=== PATIENT | female | born 1970 | race American Indian/Alaskan Native ===

== ENCOUNTER 2016-12-02 00:31 | Observation (INO) | payer MEDICAID ==
[2016-12-02 00:45] VITALS: O2SAT 100
--- NOTE | 2016-12-02 01:41 | C.PDOC ---
History Of Present Illness 46 y/o F c PMHx anemia, fibroid uterus, bronchitis p/w anemia. Patient had routine lab work performed yesterday and was found to have Hb 6.6. She states that today, she began feeling lightheaded. She denies chest pain, dyspnea, syncope. Her PMD instructed her to come to ER for blood transfusion. She denies any current bleeding. Time Seen by Provider: 12/02/16 01:14 Chief Complaint (Nursing): Abnormal Labs Past Medical History Vital Signs: Last Vital Signs Temp 98.3 F 12/02/16 03:38 Pulse 79 12/02/16 03:38 Resp 18 12/02/16 03:38 BP 108/64 12/02/16 03:38 Pulse Ox 100 12/02/16 04:14 - Medical History PMH: Anemia, Asthma Family History: States: No Known Family Hx - Social History Hx Alcohol Use: Yes Hx Substance Use: No - Immunization History Hx Tetanus Toxoid Vaccination: No Hx Influenza Vaccination: No Hx Pneumococcal Vaccination: No Review Of Systems Except As Marked, All Systems Reviewed And Found Negative. Constitutional: Negative for: Fever Cardiovascular: Negative for: Chest Pain Physical Exam - Physical Exam Additional Physical Exam Comments: Constitutional: No acute distress. Head: Normocephalic. Atraumatic. Eyes: PERRL. ENT: Moist mucous membranes. Neck: Supple. Cardiovascular: Regular rate. Radial pulse 2+ bilaterally. Cap refill < 2 seconds. No murmur. Chest: No tenderness. Respiratory: Clear to auscultation bilaterally. GI: Soft. Nontender. Nondistended. Back: No CVA tenderness. Musculoskeletal: No tenderness or swelling of extremities. Skin: No rash. No pallor. Neurologic: Alert, no focal deficit. ED Course And Treatment - Laboratory Results Result Diagrams: 12/02/16 01:53 12/02/16 01:53 O2 Sat by Pulse Oximetry: 100 Medical Decision Making Medical Decision Making: Consented for blood transfusion. ED OBSERVATION Date of observation admission: 12/02/16 Time of observation admission: 02:00 - Observation admission statement Patient is being placed in observation because:: blood transfusion - Progress Note Progress Note: 0400 Transfusing. No distress. 12/02/16 04:[address] Mack for blood transfusion observation. Disposition Discussed With : Magaly Mack Doctor Will See Patient In The: Hospital - Disposition Disposition: HOSPITALIZED Disposition Time: 04:57 Condition: STABLE - Clinical Impression Clinical Impression: Anemia
[2016-12-02 01:58] LABS: BASO # 0.1 K/uL (0.0-0.2); BASO % 0.6 % (0.0-2.0); EOS % 0.5 % (0.0-4.0); HEMATOCRIT 24.3 % (34.0-47.0); LYMPH # 3.4 K/uL (1.0-4.3); LYMPH % 41.4 % (20.0-40.0); MEAN CELL VOLUME 54.1 fL (81.0-99.0); MEAN CORPUSCULAR HEMOGLOBIN 15.2 pg (27.0-31.0); MEAN CORPUSCULAR HGB CONC 28.2 g/dL (33.0-37.0); MEAN PLATELET VOLUME 8.5 fL (7.2-11.7); MONO # 0.7 K/uL (0.0-0.8); MONO % 8.9 % (0.0-10.0); NRBC % 0.1 % (0.0-2.0); RED CELL DISTRIBUTION WIDTH 21.2 % (11.5-14.5); WHITE BLOOD COUNT 8.2 K/uL (4.8-10.8)
[2016-12-02 02:05] LABS: CHLORIDE 102 mmol/L (98-107)
[2016-12-02 02:06] LABS: POTASSIUM 3.5 mmol/L (3.6-5.2); SODIUM 143 mmol/L (132-148)
[2016-12-02 02:08] LABS: BILIRUBIN,TOTAL 0.3 mg/dL (0.2-1.3); CARBON DIOXIDE 26 mmol/L (22-30); GFR AFRICAN-AMERICAN > 60
[2016-12-02 02:09] LABS: ALB/GLOB RATIO 1.2 (1.0-2.1); ALKALINE PHOSPHATASE 53 U/L (38-126); ALT/SGPT 22 U/L (9-52); AST/SGOT 29 U/L (14-36); BLOOD UREA NITROGEN 18 mg/dL (7-17); CALCIUM 9.4 mg/dl (8.6-10.4); GLUCOSE,RANDOM 97 mg/dL (65-105); TOTAL PROTEIN 8.7 g/dL (6.3-8.3)
[2016-12-02 11:19] LABS: BASO % 0.4 % (0.0-2.0); EOS # 0.1 K/uL (0.0-0.7); EOS % 0.9 % (0.0-4.0); LYMPH # 3.3 K/uL (1.0-4.3); LYMPH % 38.5 % (20.0-40.0); MEAN CELL VOLUME 56.5 fL (81.0-99.0); MEAN CORPUSCULAR HEMOGLOBIN 16.3 pg (27.0-31.0); MEAN CORPUSCULAR HGB CONC 28.9 g/dL (33.0-37.0); MEAN PLATELET VOLUME 8.5 fL (7.2-11.7); MONO # 0.8 K/uL (0.0-0.8); NRBC % 0.2 % (0.0-2.0); WHITE BLOOD COUNT 8.5 K/uL (4.8-10.8)
[2016-12-02 11:31] LABS: CHLORIDE 106 mmol/L (98-107); POTASSIUM 4.5 mmol/L (3.6-5.2); SODIUM 140 mmol/L (132-148)
[2016-12-02 11:34] LABS: CARBON DIOXIDE 20 mmol/L (22-30); GFR AFRICAN-AMERICAN > 60
[2016-12-02 11:35] LABS: BLOOD UREA NITROGEN 17 mg/dL (7-17); CALCIUM 8.5 mg/dl (8.6-10.4); GLUCOSE,RANDOM 90 mg/dL (65-105)
[2016-12-02 11:52] LABS: INR 1.1
--- NOTE | 2016-12-02 12:00 | CP.PCM.HP ---
History of Present Illness - History of Present Illness History of Present Illness: pt came and admited feeling very weeke has severe aneamia reqired transfusion had heavy periods fibroid Present on Admission - Present on Admission Any Indicators Present on Admission: No Review of Systems - Review of Systems Systems not reviewed;Unavailable: Acuity of Condition - Constitutional Constitutional: Fatigue - EENT Eyes: As Per HPI Ears: As Per HPI Nose/Mouth/Throat: As Per HPI - Breasts Breasts: As Per HPI - Cardiovascular Cardiovascular: As Per HPI - Respiratory Respiratory: As Per HPI - Gastrointestinal Gastrointestinal: As Per HPI - Genitourinary Genitourinary: As Per HPI - Reproductive: Female Reproductive:Female: As Per HPI - Menstruation Menstruation: Heavy Menses - Musculoskeletal Musculoskeletal: As Per HPI - Integumentary Integumentary: As Per HPI - Neurological Neurological: As Per HPI - Psychiatric Psychiatric: As Per HPI - Endocrine Endocrine: As Per HPI - Hematologic/Lymphatic Hematologic: As Per HPI Past Patient History - Past Medical History & Family History Past Medical History?: Yes - Past Social History Smoking Status: Former Smoker - PULMONARY Hx Respiratory Disorders: Yes Hx Asthma: Yes - NEUROLOGICAL Hx Neurological Disorder: No - HEENT Hx HEENT Problems: No - RENAL Hx Chronic Kidney Disease: No - ENDOCRINE/METABOLIC Hx Endocrine Disorders: No - HEMATOLOGICAL/ONCOLOGICAL Hx Blood Disorders: Yes Hx Anemia: Yes - INTEGUMENTARY Hx Dermatological Problems: No - MUSCULOSKELETAL/RHEUMATOLOGICAL Hx Musculoskeletal Disorders: No Hx Falls: No - GASTROINTESTINAL Hx Gastrointestinal Disorders: No - GENITOURINARY/GYNECOLOGICAL Hx Genitourinary Disorders: No Other/Comment: uterine fibroids - PSYCHIATRIC Hx Psychophysiologic Disorder: No Hx Substance Use: No - SURGICAL HISTORY Hx Surgeries: Yes Other/Comment: multiple abortions - ANESTHESIA Hx Anesthesia: Yes Hx Anesthesia Reactions: No Hx Malignant Hyperthermia: No Has any member of the family had a problem w/ anesthesia?: No Meds Allergies/Adverse Reactions: Allergies Allergy/AdvReac Type Severity Reaction Status Date / Time shellfish derived Allergy Verified 12/02/16 00:45 Physical Exam - Constitutional Appears: Non-toxic - Head Exam Head Exam: NORMAL INSPECTION - Eye Exam Eye Exam: Periorbital tenderness Pupil Exam: NORMAL ACCOMODATION - ENT Exam ENT Exam: Mucous Membranes Moist - Neck Exam Neck exam: Positive for: Full Rom - Respiratory Exam Respiratory Exam: NORMAL BREATHING PATTERN - Cardiovascular Exam Cardiovascular Exam: REGULAR RHYTHM - GI/Abdominal Exam GI & Abdominal Exam: Normal Bowel Sounds - Rectal Exam Rectal Exam: NORMAL INSPECTION - Exam Exam: NORMAL INSPECTION External exam: NORMAL EXTERNAL EXAM - Extremities Exam Extremities exam: Positive for: normal inspection - Back Exam Back exam: NORMAL INSPECTION - Neurological Exam Neurological exam: Normal Gait, Oriented x3 - Psychiatric Exam Psychiatric exam: Normal Affect - Skin Skin Exam: Normal Color Results - Vital Signs Recent Vital Signs: Last Vital Signs Temp 98.7 F 12/02/16 08:23 Pulse 67 12/02/16 08:23 Resp 20 12/02/16 08:23 BP 142/79 12/02/16 08:23 Pulse Ox 100 12/02/16 08:23 - Labs Result Diagrams: 12/02/16 11:08 12/02/16 11:08 Labs: Laboratory Results - last 24 hr 12/02/16 11:08 WBC 8.5 RBC 4.60 Hgb 7.5 L Hct 26.0 L MCV 56.5 L D MCH 16.3 L MCHC 28.9 L RDW 22.0 H Plt Count 390 MPV 8.5 Neut % (Auto) 51.2 Lymph % (Auto) 38.5 Travis % (Auto) 9.0 Eos % (Auto) 0.9 Baso % (Auto) 0.4 Neut # 4.4 Lymph # 3.3 Travis # 0.8 Eos # 0.1 Baso # 0.0 PT 12.7 H INR 1.1 Sodium 140 Potassium 4.5 Chloride 106 Carbon Dioxide 20 L Anion Gap 19 BUN 17 Creatinine 0.7 Est GFR ( Amer) > 60 Est GFR (Non-Af Amer) > 60 Random Glucose 90 Calcium 8.5 L Assessment & Plan - Assessment and Plan (Free Text) Assessment: severe aneamia required transfusion hypocalceamia Plan: transfusion - Date & Time Date: 12/02/16 Time: 12:04
--- NOTE | 2016-12-02 15:30 | CP.PCM.PN ---
Subjective - Date & Time of Evaluation Date of Evaluation: 12/02/16 Time of Evaluation: 15:30 - Subjective Subjective: Alert and orientedx3, NAD. Objective - Vital Signs/Intake and Output Vital Signs (last 24 hours): Temp Pulse Resp BP Pulse Ox 97.7 F 58 L 16 113/67 100 12/02/16 13:34 12/02/16 13:34 12/02/16 13:34 12/02/16 13:34 12/02/16 08:23 Intake and Output: 12/02/16 12/02/16 06:59 18:59 Intake Total 0 Balance 0 - Medications Medications: Current Medications Ferrous Sulfate (Feosol) 325 mg PO TID MYRNA Last Admin: 12/02/16 14:16 Dose: 325 mg - Labs Labs: 12/02/16 11:08 12/02/16 11:08 PT 12.7 SECONDS (9.7-12.2) H 12/02/16 11:08 INR 1.1 12/02/16 11:08 Assessment and Plan - Assessment and Plan (Free Text) Assessment: Patient admitted with severe anemia, seen and examined. Alert and orientedx3, no active bleeding. To receive the second unit of PRBC then can be discharged today as per DR Mack. Advised to follow up in the office on sunday. No acute distress.
[2016-12-02 16:20] VITALS: PULSE 59; RESP 18
[2016-12-02 16:21] VITALS: BP 116/70; TEMP 97.7
--- NOTE | 2016-12-04 13:17 | PQF ANEMIA ---
This form is a permanent part of the medical record Clarification of your documentation is requested to better reflect the severity of illness and intensity of treatment of your patient. Indicators present [X] Anemia [] Drop in H&H from []___ to []___ [] Hypotension [] GI Bleed [X] Transfusion(s) [] Acute bleed other sites [] Tachycardia [] Surgical Procedure Blood Loss (expected not a complication) Other:[X]____documentation of heavy periods, transfusion given._ Location in the medical record that reflects the above clinical findings: [] Treatment Provided: [x] Transfusion PHYSICIAN'S RESPONSE Based on your medical judgment of the clinical indicators outlined above, are you treating this patient for a known or suspected: [] Acute blood loss anemia [] Chronic blood loss anemia [x] Acute on Chronic blood loss anemia [] Anemia due to malignancy [] Anemia due to chemotherapy or radiation therapy [] Anemia of Chronic Disease, please specify: [] [] Other, please indicate type of anemia []____ [] If Unable to Determine, please check the box, sign and date. Present On Admission (POA) Indicator: [x] Present at the time of admission [] Not present at the time of admission [] Clinically Undetermined In responding to this query, please exercise your independent professional judgment. The fact that a question is asked does not imply that any particular answer is desired or expected. Thank you for your clarification on this documentation. If you have any questions please call:[ ] * Thank you, [ Ciara Palafox, JACQUELINE, CCS, CCS-P] roller gold leaf MARLINE
== END 2016-12-02 19:20 | disposition home or self-care (01) ==
LOC: C.ER 00:31 → C.9OBSV 02:00 → MERGE 02:00 → C.9E 06:09 → C.3T 06:15 → UNDODISOB 17:15
PROVIDERS: ADMIT Internal Medicine; ATTEND Internal Medicine
DX: D62 Acute posthemorrhagic anemia (principal); Z87.891 Personal history of nicotine dependence; J45.909 Unspecified asthma, uncomplicated; E83.51 Hypocalcemia; N92.0 Excessive and frequent menstruation with regular cycle
CPT/HCPCS: 36430; 80048; 80053; 85025; 85610; 86850; 86900; 86920; 99284; G0378; P9051

== ENCOUNTER 2017-09-06 19:47 | Emergency (ER) | payer MEDICAID ==
--- NOTE | 2017-09-06 21:15 | C.PDOC ---
History Of Present Illness The patient reports 4 day history of cough which is productive of yellow/green sputum. The patient states that the symptoms are associated with fever and bodyaches. Denies nausea, vomiting, diarrhea, travel, chest pain, SOB. Time Seen by Provider: 09/06/17 20:14 Chief Complaint (Nursing): Cough, Cold, Congestion History Per: Patient History/Exam Limitations: no limitations Onset/Duration Of Symptoms: Days Current Symptoms Are (Timing): Still Present Recent travel outside of the [place]: No Additional History Per: Patient Past Medical History Reviewed: Historical Data, Nursing Documentation, Vital Signs Vital Signs: Last Vital Signs Temp 99.4 F 09/06/17 20:08 Pulse 78 09/06/17 20:08 Resp 20 09/06/17 22:15 BP 118/70 09/06/17 20:08 Pulse Ox 100 09/06/17 22:38 - Medical History PMH: Anemia, Asthma Denies: Chronic Kidney Disease Surgical History: No Surg Hx Family History: States: Unknown Family Hx - Social History Hx Alcohol Use: Yes (socially) Hx Substance Use: No - Immunization History Hx Tetanus Toxoid Vaccination: Yes Hx Influenza Vaccination: No Hx Pneumococcal Vaccination: No Review Of Systems Constitutional: Positive for: Fever, Weakness. Negative for: Chills Cardiovascular: Negative for: Chest Pain, Palpitations Respiratory: Positive for: Cough, Sputum. Negative for: Shortness of Breath Gastrointestinal: Negative for: Nausea, Vomiting, Abdominal Pain Genitourinary: Negative for: Dysuria, Hematuria Skin: Negative for: Rash Neurological: Negative for: Weakness, Numbness, Headache Physical Exam - Physical Exam Appears: Non-toxic, Other (Thin appearing) Skin: Normal Color, Warm, Dry Head: Atraumatic, Normacephalic Eye(s): bilateral: Normal Inspection, PERRL, EOMI Ear(s): Bilateral: Normal Nose: No Discharge, No Deformity Oral Mucosa: Moist Throat: Normal, No Erythema, No Exudate Neck: Normal ROM, Supple Chest: Symmetrical Cardiovascular: Rhythm Regular, No Murmur Respiratory: Normal Breath Sounds, No Rales, No Rhonchi, No Wheezing Gastrointestinal/Abdominal: Soft, No Tenderness, No Guarding, No Rebound Extremity: Normal ROM, No Pedal Edema, No Calf Tenderness, No Deformity, No Swelling Neurological/Psych: Oriented x3, Normal Speech, Normal Cognition Gait: Steady ED Course And Treatment - Laboratory Results Result Diagrams: 09/06/17 21:45 O2 Sat by Pulse Oximetry: 100 (On RA) Pulse Ox Interpretation: Normal - Radiology CXR: Interpreted by Me CXR Interpretation: Yes: No Acute Disease. No: Infiltrates Medical Decision Making Medical Decision Making: Plan: * Lab * CBC ordered because of patient's PMHx of anemia. * CXR * Motrin 400 mg PO * Tessalon perles 200 mg PO * Prednisone 40 mg PO * Influenza A B test Patient reports she feels weak becasue she thinks her hemoglobin might be low. CBC was ordered ro rule that out and to be sure due to patient's PMHx of anemia. Results were discussed with the patient. On re-exam, the patient reports improvement of symptoms. Lungs are CTA, heart is RRR, abdomen is soft, non-tender and the patient is tolerating PO well. Ambulatory in the ED with steady gait. Disposition - Disposition Referrals: [facility] [Outside] Disposition: HOME/ ROUTINE Disposition Time: 21:15 Condition: GOOD Additional Instructions: Follow up with your primary medical doctor or clinic in 2-5 days for further evaluation. Take medications as prescribed. Return to the emergency department at any time if symptoms persist or worsen. Prescriptions: Ibuprofen [Motrin] 1 tab PO TID PRN #30 tab PRN Reason: Pain Loratadine [Claritin] 10 mg PO DAILY #10 tab predniSONE [Prednisone] 20 mg PO BID #10 tab Instructions: Upper Respiratory Infection (ED) Forms: [employer] ([place]) - Clinical Impression Clinical Impression: Upper respiratory infection, Anemia - PA / SURVEILLANCE SYSTEMS ENGINEER / Resident Statement MD/DO has reviewed & agrees with the documentation as recorded. - Scribe Statement The provider has reviewed the documentation as recorded by the Scribe Melvin Morrison All medical record entries made by the Scribe were at my direction and personally dictated by me. I have reviewed the chart and agree that the record accurately reflects my personal performance of the history, physical exam, medical decision making, and the department course for this patient. I have also personally directed, reviewed, and agree with the discharge instructions and disposition.
[2017-09-06 21:50] LABS: BASO % 0.8 % (0.0-2.0); EOS # 0.1 K/uL (0.0-0.7); EOS % 1.6 % (0.0-4.0); HEMOGLOBIN 9.8 g/dL (11.0-16.0); LYMPH # 1.4 K/uL (1.0-4.3); LYMPH % 24.5 % (20.0-40.0); MEAN CORPUSCULAR HEMOGLOBIN 21.5 pg (27.0-31.0); MEAN CORPUSCULAR HGB CONC 31.1 g/dL (33.0-37.0); MEAN PLATELET VOLUME 7.7 fL (7.2-11.7); MONO # 0.7 K/uL (0.0-0.8); MONO % 12.5 % (0.0-10.0); NEUT # 3.4 K/uL (1.8-7.0); NEUT % 60.6 % (50.0-75.0); NRBC % 0.1 % (0.0-2.0); RBC 4.55 Mil/uL (3.80-5.20); RED CELL DISTRIBUTION WIDTH 15.6 % (11.5-14.5); WHITE BLOOD COUNT 5.5 K/uL (4.8-10.8)
[2017-09-06 21:54] LABS: MEAN CELL VOLUME 69.1 fL (81.0-99.0)
[2017-09-06 22:52] VITALS: BP 118/70; PULSE 78; RESP 20; TEMP 99.4; O2SAT 100
--- NOTE | 2017-09-07 08:19 | RAD ---
HISTORY: cough, fever COMPARISON: No prior. TECHNIQUE: Chest PA and lateral FINDINGS: LUNGS: No active pulmonary disease. PLEURA: No significant pleural effusion identified. No pneumothorax apparent. CARDIOVASCULAR: Normal. OSSEOUS STRUCTURES: No significant abnormalities. VISUALIZED UPPER ABDOMEN: Normal. OTHER FINDINGS: None. IMPRESSION: No acute cardiopulmonary disease appreciated.
== END 2017-09-06 22:15 | disposition home or self-care (01) ==
LOC: C.ER 19:47
DX: J06.9 Acute upper respiratory infection, unspecified (principal); D64.9 Anemia, unspecified; Z87.891 Personal history of nicotine dependence